=== PATIENT | female | born 2005 | race Two or more races ===

== ENCOUNTER → 2024-12-10 | Outpatient (CLI) | payer MEDICAID, SELFPAY ==
--- NOTE | 2024-12-10 10:18 | XR_ITS ---
Examination: Abdomen sonogram, complete Date and time of exam: December 10, 2024 1027 hours INDICATIONS: Left upper abdominal pain beginning 3 months ago. Technique: Multiple real-time grayscale transabdominal sonographic images of the abdomen have been obtained. Findings: Normal gallbladder. Normal common bile duct 0.3 cm Pancreatic head 1.2 cm Aorta not enlarged Liver 14.5 cm no liver lesions Normal hepatopedal portal venous flow Patent IVC Right kidney 9.4 cm cortex 1.4 cm Left kidney 9.2 cm cortex 2.1 cm Spleen 8.4 cm IMPRESSION: Normal gallbladder Liver normal size no focal liver lesions
== END | disposition home or self-care (01) ==
PROVIDERS: PCP Nurse Practitioner Pediatrics; Referring Provider Nurse Practitioner Pediatrics; Visit Provider Nurse Practitioner Pediatrics
DX: R10.9 Unspecified abdominal pain (principal)
CPT/HCPCS: 76700